=== PATIENT | male | born 1980 | race Caucasian/White ===

== ENCOUNTER 2023-12-17 21:46 | Emergency (ER) | payer BC ==
[~2023-12-17] VITALS: Ht 177.8 cm; Wt 75.4 kg
[2023-12-17 21:59] VITALS: BP 140/98; PULSE 80; RESP 16; O2SAT 99
[2023-12-17 23:57] VITALS: TEMP 98.7
[2023-12-18] MEDS: BUPIVAcaine 0.5% W/EPI /PF 10ml vial IJ STA (00:07)
[2023-12-18] MEDS: TETanus/Pertussis (Acell)/Diphther VAC/PF (Tdap-Adult) 0.5ml syringe IMVAC ONE (00:07)
== END 2023-12-18 00:08 | disposition home or self-care (01) ==
LOC: ER 21:48
DX: S61.412A Laceration without foreign body of left hand, initial encounter (principal); W26.8XXA Contact with other sharp object(s), not elsewhere classified, initial encounter; Y93.89 Activity, other specified; Y92.89 Other specified places as the place of occurrence of the external cause; Y99.8 Other external cause status
CPT/HCPCS: 12001; 90471; 90715; 99283; A6449